=== PATIENT | male | born 1990 | race African-American/Black ===

== ENCOUNTER 2018-08-09 19:02 | Emergency (ER) | payer MEDICAID ==
[~2018-08-09] VITALS: Ht 167.6 cm; Wt 51.0 kg
[2018-08-10 02:29] VITALS: BP 115/59
== END 2018-08-10 02:45 | disposition home or self-care (01) ==
LOC: ER 19:02
DX: T73.0XXA Starvation, initial encounter (principal); X58.XXXA Exposure to other specified factors, initial encounter; F17.200 Nicotine dependence, unspecified, uncomplicated; F12.10 Cannabis abuse, uncomplicated; F11.10 Opioid abuse, uncomplicated; Z88.8 Allergy status to other drugs, medicaments and biological substances
CPT/HCPCS: 99283